=== PATIENT | female | born 1995 | race Caucasian/White ===

== ENCOUNTER 2022-08-26 20:37 | Emergency (ER) | payer OTHER ==
[~2022-08-26] VITALS: Ht 167.6 cm; Wt 75.0 kg
[2022-08-26 21:42] VITALS: BP 129/62
[2022-08-27] MEDS ORDERED: BACITRACIN 0.9 GM PACKET OINTMENT TP ONE
== END 2022-08-27 00:55 | disposition home or self-care (01) ==
LOC: EMS 20:41
DX: S60.221A Contusion of right hand, initial encounter (principal); Z88.2 Allergy status to sulfonamides; V89.2XXA Person injured in unspecified motor-vehicle accident, traffic, initial encounter; Y93.89 Activity, other specified; Y92.89 Other specified places as the place of occurrence of the external cause; Y99.8 Other external cause status
CPT/HCPCS: 99283